=== PATIENT | male | born 1970 | race Hispanic/Latino ===

== ENCOUNTER 2022-03-17 23:32 | Emergency (ER) | payer OTHER ==
[~2022-03-17] VITALS: Ht 177.8 cm; Wt 97.0 kg
[~2022-03-17 23:32] MED LIST: ATORVASTATIN CA10 MG PO
[2022-03-17] MEDS ORDERED: METFORMIN HCL500 M2 PO (23:58)
[2022-03-17] MEDS ORDERED: LISINOPRIL10 MG PO (23:58)
[2022-03-18 00:26] LABS: BASO% 0.7 % (0-3); EOS% 2.3 % (0-8); HEMATOCRIT 40.9 % (39.0-50.0); HEMOGLOBIN 14.1 g/dl (14.0-18.0); IMMATURE GRANULOCYTES 0.2 % (0.0-5.0); LYMPH% 20.4 % (15-41); MEAN CELL VOLUME 91.5 fL CALC (80.0-100.0); MEAN CORPUSCULAR HGB 31.5 pG CALC (26.0-32.0); MEAN CORPUSCULAR HGB CONC 34.5 g/dL CAL (32.0-36.0); MONO% 5.3 % (2-13); NEUT# 7.64 thou/uL (1.82-7.42); NEUT% 71.1 % (42-76); RED BLOOD COUNT 4.47 mill/uL (4.70-6.10)
[2022-03-18 00:39] LABS: ALKALINE PHOSPHATASE 111 u/l (38-126); ANION GAP 10 (6-22 (CALC)); BILIRUBIN, TOTAL 0.6 mg/dL (0.0-1.4); BUN 15 mg/dL (9-20); BUN/CREATININE RATIO 19 (12-20 (CALC)); CARBON DIOXIDE 28 mmol/l (22-30); CHLORIDE 99 mmol/l (95-108); CREATININE 0.8 mg/dL (0.7-1.3); GFR FOR AFR.AMER. > 60 ML/MIN (>=60 (CALC)); GFR OTHER RACES > 60 ML/MIN (>=60 (CALC)); POTASSIUM 4.2 mmol/l (3.5-5.1); SGOT/AST 25 u/l (17-59); SODIUM 133 mmol/l (137-146); TOTAL PROTEIN 7.4 g/dL (6.3-8.2)
[2022-03-18] MEDS ORDERED: ROBITUSSIN AC10 ML PO ×2 (01:45→16:15)
[2022-03-18] MEDS ORDERED: ZPAK PO ×2 (01:45→15:42)
[2022-03-18 02:10] VITALS: BP 141/70
== END 2022-03-18 02:10 | disposition home or self-care (01) | DRG 153 ==
LOC: EDBD 23:32 → ED 23:32
PROVIDERS: Emergency Medicine
DX: J06.9 Acute upper respiratory infection, unspecified (principal); I10 Essential (primary) hypertension